=== PATIENT | female | born 1935 | race Caucasian/White ===

== ENCOUNTER 2020-12-26 21:19 | Emergency (ER) | payer MEDICAID, MEDICARE ==
--- NOTE | 2020-12-26 21:26 | EDM.PDOC ---
ED HPI GENERAL MEDICAL PROBLEM - General Chief Complaint: Neurological Problem Stated Complaint: [facility] Time Seen by Provider: 12/26/20 21:22 Source of Information: Reports: Patient, EMS, RN Notes Reviewed History Limitations: Reports: No Limitations - History of Present Illness INITIAL COMMENTS - FREE TEXT/NARRATIVE: 85-year-old female presents emergency department today following a seizure type episode. She has known seizure disorder family states they thought she was maybe choking and then went into [place] seizure. EMS services were called transported to the ED for further evaluation. By the time she arrives she is aware of her situation is able to communicate with me has no complaints - Related Data Allergies Allergy/AdvReac Type Severity Reaction Status Date / Time No Known Allergies Allergy Verified 12/26/20 21:24 Home Meds: Home Meds Dextrose [Glutose 15] 15 g PO ASDIRECTED 12/26/20 [History] Nystatin [Nystatin Crm] 30 gm TOP BID 12/26/20 [History] diazePAM [Diazepam] 5 mg IJ ASDIRECTED 12/26/20 [History] Past Medical History Neurological History: Reports: Seizure Social & Family History - Tobacco Use Tobacco Use Status *Q: Never Tobacco User ED ROS GENERAL - Review of Systems Review Of Systems: See Below Constitutional: Reports: No Symptoms HEENT: Reports: No Symptoms Respiratory: Reports: No Symptoms Cardiovascular: Reports: No Symptoms GI/Abdominal: Reports: No Symptoms Neurological: Reports: Seizure ED EXAM, NEURO - Physical Exam Exam: See Below Exam Limited By: No Limitations General Appearance: Alert, WD/WN, No Apparent Distress Eye Exam: Bilateral Eye: EOMI, PERRL Ears: Normal External Exam, Normal Canal, Hearing Grossly Normal, Normal TMs Nose: Normal Inspection, Normal Mucosa, No Blood Throat/Mouth: Normal Inspection, Normal Lips, Normal Teeth, Normal Gums, Normal Oropharynx, Normal Voice, No Airway Compromise, Other (All abrasion noted on the tongue) Head Exam: Atraumatic, Normocephalic Neck: Normal Inspection, Supple, Non-Tender, Full Range of Motion Respiratory/Chest: No Respiratory Distress, Lungs Clear, Normal Breath Sounds, No Accessory Muscle Use, Chest Non-Tender Cardiovascular: Regular Rate, Rhythm, No Murmur GI/Abdominal: Soft, Non-Tender Course - Vital Signs Last Recorded V/S: Last Vital Signs Temp 96.4 F L 12/26/20 21:52 Pulse 65 12/26/20 22:54 Resp 16 12/26/20 21:52 BP 182/74 H 12/26/20 22:54 Pulse Ox 96 12/26/20 21:52 - Orders/Labs/Meds Labs: Laboratory Tests 12/26/20 12/26/20 Range/Units 21:36 21:36 WBC 6.5 (4.5-11.0) K/uL RBC 3.87 (3.30-5.50) M/uL Hgb 12.7 (12.0-15.0) g/dL Hct 39.2 (36.0-48.0) % MCV 101 H (80-98) fL MCH 33 H (27-31) pg MCHC 32 (32-36) % Plt Count 223 (150-400) K/uL Neut % (Auto) 63.2 (36-66) % Lymph % (Auto) 25.2 (24-44) % Hyde % (Auto) 9.6 H (2-6) % Eos % (Auto) 1.7 L (2-4) % Baso % (Auto) 0.3 (0-1) % Sodium 150 H (140-148) mmol/L Potassium 2.9 L* (3.6-5.2) mmol/L Chloride 106 (100-108) mmol/L Carbon Dioxide 35 H (21-32) mmol/L Anion Gap 11.9 (5.0-14.0) mmol/L BUN 17 (7-18) mg/dL Creatinine 1.3 H (0.6-1.0) mg/dL Est Cr Clr Drug Dosing 21.52 mL/min Estimated GFR (MDRD) 39 L (>60) Glucose 186 H (74-106) mg/dL Calcium 9.6 (8.5-10.1) mg/dL Meds: Medications Discontinued Medications Generic Name Dose Route Start Last Admin Trade Name [place] PRN Reason Stop Dose Admin Lactated Ringer's 1,000 mls @ 999 mls/hr 12/26/20 21:59 12/26/20 22:13 Ringers, Lactated IV 12/26/20 22:59 999 mls/hr BOLUS ONE Administration Potassium Chloride 20 meq/ 100 mls @ 50 mls/hr 12/26/20 21:59 12/26/20 22:14 Premix IV 12/26/20 23:58 50 mls/hr ONETIME ONE Administration Lidocaine HCl Confirm 12/26/20 22:04 12/26/20 22:15 Lidocaine 1% 5 Ml Sdv Administered 12/26/20 22:05 2 ml Dose Administration 5 ml .ROUTE .STK-MED ONE Potassium Chloride 40 meq 12/26/20 21:59 12/26/20 22:16 Potassium Chloride 20 Meq Tab.Er PO 12/26/20 22:00 40 meq ONETIME ONE Administration Departure - Departure Time of Disposition: 00:54 Disposition: Home, Self-Care 01 Condition: Fair Clinical Impression: Seizure-like activity - Discharge Information Instructions: Seizure, Adult, [id number] Forms: ED Department Discharge Additional Instructions: Continue to use the diazepam as needed, recommend following up with neurology upon return home consider long-term seizure medications call return to the emergency department worsening of symptoms Sepsis Event Note (ED) - Focused Exam Vital Signs: Vital Signs Temp Pulse Resp BP Pulse Ox 12/26/20 22:54 65 182/74 H 12/26/20 21:54 74 146/71 H 12/26/20 21:52 96.4 F L 74 16 184/81 H 96 12/26/20 21:22 96.4 F L 74 16 184/81 H 96 - Assessment/Plan Plan: Assessment Acuity = acute Site and laterality = seizure-like activity 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 Plan is discharged home have her follow-up with primary care upon return home for further evaluation continue to use the diazepam as needed This note was dictated using [employer] voice recognition software please call with any questions on syntax or grammar.
[2020-12-26] MEDS ORDERED: Lactated Ringers 1,000 ML IV ONE (21:59)
[2020-12-26] MEDS ORDERED: Potassium Chloride 20 MEQ Tab.ER PO ONE (21:59)
[2020-12-26] MEDS ORDERED: Potassium Chloride 20 MEQ in Premix Bag 1 BAG IV ONE (21:59)
== END 2020-12-27 01:31 | disposition home or self-care (01) ==
LOC: JP.ED 21:19
DX: G40.909 Epilepsy, unspecified, not intractable, without status epilepticus (principal); S00.512A Abrasion of oral cavity, initial encounter; Z79.899 Other long term (current) drug therapy; X58.XXXA Exposure to other specified factors, initial encounter
CPT/HCPCS: 36415; 80048; 85025; 96365; 96366; 99284; A9270; J3480; J7120